=== PATIENT | female | born 1995 | race Caucasian/White ===

== ENCOUNTER 2017-11-08 02:42 | Observation (INO) ==
[2017-11-08] MEDS ORDERED: Acetaminophen 500 MG Tablet PO PRN (10:40)
[2017-11-08 11:43] LABS: Creatine Kinase 46 U/L (26-192)
--- NOTE | 2017-11-08 12:08 | US ---
EXAM DATE: 11/08/2017 11:50 AM EDT AGE/SEX: 22 years / Female INDICATIONS: Right upper quadrant pain. CLINICAL DATA: This is the patient's initial encounter. Patient reports that signs and symptoms have been present for 1 day and indicates a pain score of 4/10. MEDICAL/SURGICAL HISTORY: . Right upper quadrant pain. None. COMPARISON: No prior exams available for comparison. MEASUREMENTS: Liver:__ 15.1 cm. Common Bile Duct:__ 3mm. FINDINGS: Liver: Normal echotexture without focal lesion or ductal dilatation. Portal Vein: Hepatopedal flow seen in portal vein. Common Duct: No intraluminal mass or stone visualized. Gallbladder: Contracted with multiple stones present. Pancreas: Focally unremarkable Right Kidney: Normal echotexture and cortical thickness. No mass or hydronephrosis. Other: CONCLUSION: Gallstones in a nondistended gallbladder. Electronically signed by: Mustapha Randle MD 11/08/2017 12:07 PM EDT
--- NOTE | 2017-11-08 14:04 | P.HPCA ---
History of Present Illness Primary Care Physician: No Primary Care Physician Chief Complaint: Chest pain History of Present Illness: This is a 22-year-old female with history of recent vaginal delivery 3 weeks ago that presents to ED in [place] to be evaluated for chest discomfort and was subsequently transported to [facility] in the chest pain center for further evaluation. Patient states she is been having intermittent chest discomforts for more than 2 months. She states chest pain, she points to the epigastric region. States that her shadowgraph operator is aware of her discomforts. States that she was told that it was likely heartburn. Was told to take Zantac. States it does help some time sometimes it does not. Usually discomfort would last 10-15 minutes. Last evening however the discomfort lasted longer. It lasted for about 11 hours. She is also been intermittently shortness of breath with it. Denies nausea or diaphoresis. Currently denies any discomforts. Has had no vomiting. Denies diarrhea. States that she was induced at 36 weeks secondary to preeclampsia. Has not followed up with her shadowgraph operator since delivery. Denies fevers or chills. Denies swelling or pain in legs. She is a non-smoker. Denies family history of CAD. Denies history of hyperlipidemia, diabetes, and CAD. She did have preeclampsia. Recent vaginal delivery 3 weeks ago. - Diagnosis (1) Atypical chest pain Inpatient Certification: I certify that the inpatient services were ordered in accordance with Medicare regulations governing the order. This includes certification that hospital inpatient services are reasonable and necessary and in the case of services not specified as inpatient-only under 42 CFR 419.22(n), that they are appropriately provided as inpatient services in accordance to with the 2-midnight benchmark under 43 CFR 412.3(e) Review of Systems General: Patient denies fevers, chills, and recent travel. HEENT: Patient denies headache, sore throat, difficulty swallowing. Cardiovascular: Has the chest discomfort as mentioned above and points to abdomen to indicate where the discomfort is located. Denies sensation of heart beating rapidly or irregularly. No syncope. Denies diaphoresis. Respiratory: Denies shortness of breath or inspirational chest discomfort. Denies coughing wheezing or hemoptysis. GI: Points to epigastric region indicate where her discomfort is present. Patient denies nausea, vomiting, diarrhea, bloody stools. Musculoskeletal: Patient denies joint pain or edema. Denies calf pain or edema. Neurovascular: Patient denies numbness, tingling, weakness in extremities. Denies headache. Endocrine: Denies polyuria and polydipsia. Hematologic: Denies easy bruising. Skin: Denies rash or itching. PMFSH - History History Provided By: Patient - Medical History Medical History: Medical History (Last Updated 11/08/17 @ 02:54 by Margaret Puri) Patient denies medical problems - Surgical History Surgical History: Surgical History (Last Updated 11/08/17 @ 02:54 by Margaret Puri) No history of previous surgery - Tobacco History Second Hand Smoke Exposure: Yes Smoking Status: Never smoker - Alcohol History How Often Do You Have a Drink Containing Alcohol: Monthly or less - Substance Use History Substance History: No History of Abuse Medications and Allergies Active Medications: Active Medications Acetaminophen (Tylenol) 500 mg PO Q4H PRN PRN Reason: HEADACHE Nitroglycerin (Nitro-Bid 2% Oint) 1 inch TOPICAL Q6HR ANTWAN Last Admin: 11/08/17 13:36 Dose: 1 inch Sodium Chloride (Ns Flush) 2 ml IV.FLUSH BID ANTWAN Sodium Chloride (Ns Flush) 2 ml IV.FLUSH PRN PRN PRN Reason: FLUSH AFTER USING IV ACCESS Allergies Allergy/AdvReac Type Severity Reaction Status Date / Time penicillin G Allergy Anaphylaxis Verified 11/08/17 02:52 Home Medications Medication Instructions Recorded Confirmed Type No Known Home Medications 11/08/17 11/08/17 History Exam Vital signs: Vital Signs 11/08/17 10:03 11/08/17 10:58 Temperature 98.2 F 97.6 F Pulse Rate 94 H 81 Respiratory Rate 14 16 Blood Pressure 126/81 110/73 Pulse Oximetry 97 Intake & Output 11/07/17 11/08/17 11/08/17 18:59 06:59 18:59 Weight 78 kg Other: Date of Last Bowel Movement 11/07/17 Weight On Admission 78 kg Narrative: GENERAL: This is a well-nourished, well-developed patient, in no apparent distress. Patient speaks in clear complete sentences. Patient is pleasant. HEENT: Head is atraumatic and normocephalic. Neck is supple without lymphadenopathy and trachea is midline. No JVD or carotid bruits. CARDIOVASCULAR: Regular rate and rhythm without murmurs, gallops, or rubs. RESPIRATORY: Clear to auscultation. Breath sounds equal bilaterally. No wheezes , rales, or rhonchi. Chest wall is nontender. No use of accessory muscles. GASTROINTESTINAL: There is some epigastric discomfort. Also some mild right upper quadrant discomfort but not a true Khan sign. Abdomen is nondistended and soft. No obvious pulsatile mass or bruit. No CVA tenderness. Strong femoral pulses bilaterally. Normal bowel sounds in all quadrants. MUSCULOSKELETAL: Patient is moving upper and lower extremities freely. No calf tenderness or edema, no Homans sign. Strong pulses in upper and lower extremities. NEUROLOGICAL: Patient is alert and oriented. Cranial nerves 2-12 are grossly intact. No focal deficits and speech is clear. SKIN: No rash and turgor is normal. Results Cardiac Enzymes 11/08/17 Range/Units 11:07 Troponin I Less than 0.02 L (0.02-0.05) ng/mL Intake and Output 11/07/17 11/08/17 11/08/17 22:59 06:59 14:59 Other: Date of Last Bowel Movement 11/07/17 Weight 78 kg Weight On Admission 78 kg Patient Weight 11/09/17 06:59 Weight 78 kg EKG interpretations - EKG EKG shows: sinus rhythm (Initial EKGs are sinus rhythm without significant ST segment depressions or elevations.) Caprini VTE Risk Assessment Caprini VTE Risk Assessment: No/Low Risk (score <= 1) Caprini Risk Assessment Model: Point Value = 1 Point Value = 2 Point Value = 3 Point Value = 5 Age 41-60 Minor surgery BMI > 25 kg/m2 Swollen legs Varicose veins or History of unexplained or recurrent spontaneous Oral contraceptives or hormone replacement Sepsis (< 1 month) Serious lung disease, including pneumonia (< 1 month) Abnormal pulmonary function Acute myocardial infarction Congestive heart failure (< 1 month) History of inflammatory bowel disease Medical patient at bed rest Age 61-74 Arthroscopic surgery Major open surgery (> 45 min) Laparoscopic surgery (> 45 min) Malignancy Confined to bed (> 72 hours) Immobilizing plaster cast Central venous access Age >= 75 History of VTE Family history of VTE Factor V Leiden Prothrombin [id number] Lupus anticoagulant Anticardiolipin antibodies Elevated serum homocysteine Heparin-induced thrombocytopenia Other congenital or acquired thrombophilia Stroke (< 1 month) Elective arthroplasty Hip, pelvis, or leg fracture Acute spinal cord injury (< 1 month) Prophylaxis Regimen: Total Risk Factor Score Risk Level Prophylaxis Regimen 0-1 Low Early ambulation 2 Moderate Order ONE of the following: *Sequential Compression Device (SCD) *Heparin 5000 units SQ BID 3-4 Higher Order ONE of the following medications: *Heparin 5000 units SQ TID *Enoxaparin/Lovenox 40 mg SQ daily (WT < 150 kg, CrCl > 30 mL/min) *Enoxaparin/Lovenox 30 mg SQ daily (WT < 150 kg, CrCl > 10-29 mL/min) *Enoxaparin/Lovenox 30 mg SQ BID (WT < 150 kg, CrCl > 30 mL/min) AND/OR *Sequential Compression Device (SCD) 5 or more Highest Order ONE of the following medications: *Heparin 5000 units SQ TID (Preferred with Epidurals) *Enoxaparin/Lovenox 40 mg SQ daily (WT < 150 kg, CrCl > 30 mL/min) *Enoxaparin/Lovenox 30 mg SQ daily (WT < 150 kg, CrCl > 10-29 mL/min) *Enoxaparin/Lovenox 30 mg SQ BID (WT < 150 kg, CrCl > 30 mL/min) AND *Sequential Compression Device (SCD) Assessment and Plan - Assessment (1) Atypical chest pain Code(s): R07.89 - Other chest pain Status: Acute - Plan * Atypical chest pain: Patient has had serial cardiac enzymes and EKGs for ruling out purposes. She will be seen by Dr. Chairez of cardiology in the chest pain center. Likely no further cardiac testing. She had more of abdominal discomfort. Gallbladder ultrasound revealed multiple stones in the nondistended gallbladder. She would need further follow-up with her PCP. I have attempted to speak with her shadowgraph operator. The office states they will give my number to the medical delivery technician who will then talk with me and then relay the information to the shadowgraph operator. I am awaiting this phone call. Regardless, patient will need follow-up with her OB. Return to ED for interval issues. Patient is stable at this time. She is agreeable to this plan. H&P: Quality - VTE Deep Vein Thrombosis/Pulmonary Embolism Present on Admission: No
--- NOTE | 2017-11-08 23:28 | ECG ---
Date Performed: 11/08/2017 Time Performed: 10:53:36 PTAGE: 22 years EKG: Sinus rhythm NORMAL ECG INTERPRETATION BASED ON A DEFAULT AGE OF 40 YEARS Since the PREVIOUS TRACING , no significant change noted DOCTOR: Moses Bettencourt Interpretating Date/Time 11/08/2017 23:26:19
== END 2017-11-08 17:44 | disposition home or self-care (01) ==
LOC: NEDDLT 02:42 → INTOOBSV 09:31 → NEPFCDU 09:31
PROVIDERS: ADMIT Internal Medicine Interventional Cardiology; ATTEND Internal Medicine Interventional Cardiology